=== PATIENT | female | born 1990 | race Caucasian/White ===

== ENCOUNTER → 2017-09-01 | Outpatient (CLI) | payer BC ==
[2017-09-01 15:45] LABS: Total Protein 4.4 g/dL (6.3-8.2)
[2017-09-01 18:48] LABS: Protein, Total 4.5 g/dL (6.2-8.2)
[2017-09-01 18:56] LABS: Vitamin D 25 Hydroxy 15.9 ng/mL (30.0-100.0)
[2017-09-01 19:16] LABS: Parathyroid Hormone Intact 77.3 pg/mL (14.0-72.0)
== END | disposition home or self-care (01) ==
LOC: LABWHC1 14:30
PROVIDERS: ATTEND Family Medicine
DX: E83.51 Hypocalcemia (principal)
CPT/HCPCS: 36415; 82306; 82330; 83970; 84155; 84165

== ENCOUNTER → 2017-09-30 | Outpatient (CLI) | payer BC ==
--- NOTE | 2017-09-30 17:37 | US ---
EXAMINATION TYPE: US thyroid st tissue head/neck DATE OF EXAM: 09/30/2017 COMPARISON: NONE CLINICAL HISTORY: E21.3 Hyperparathyroidism,. not on meds GLAND SIZE: Right Lobe: 3.8 x 1.0 x 1.6 cm Overall Parenchyma: homogenous Left Lobe: 4.2 x 1.3 x 1.2 cm Overall Parenchyma: homogeneous Isthmus Thickness: 0.3 cm NODULES RIGHT: # of nodules measured on right: 0 LEFT: # of nodules measured on left: 0 ISTHMUS: # of nodules measured in the isthmus: 0 Bilateral neck scanned, no evidence of lymphadenopathy. No parathyroid tissue seen IMPRESSION: Thyroid gland appears normal. No evidence of a parathyroid mass.
== END | disposition home or self-care (01) ==
LOC: RADUSWWP 16:22
PROVIDERS: ATTEND Internal Medicine Endocrinology, Diabetes & Metabolism
DX: E21.3 Hyperparathyroidism, unspecified (principal)
CPT/HCPCS: 76536

== ENCOUNTER 2017-10-26 10:04 | Emergency (ER) | payer SELFPAY ==
[2017-10-26 12:40] LABS: Appearance,Urine Clear (Clear); Bilirubin,Urine Negative (Negative); Blood,Urine Small (Negative); Color,Urine Colorless; Glucose,Urine (UA) Negative (Negative); Ketones,Urine Negative (Negative); Leukocyte Esterase,Urine Negative (Negative); Nitrite,Urine Negative (Negative); PH, Urine 5.5 (5.0-8.0); Protein,Urine Negative (Negative); Specific Gravity,Urine 1.003 (1.001-1.035); Squamous Epithelial Cell,Urine <1 /hpf (0-4); Urobilinogen,Urine <2.0 mg/dL (<2.0); WBC,Urine <1 /hpf (0-5)
--- NOTE | 2017-10-26 12:48 | ED ---
Female Urogenital HPI - General Chief complaint: Vaginal Bleeding Stated complaint: Bleeding/cramping/ Time Seen by Provider: 10/26/17 10:54 Source: patient, RN notes reviewed, old records reviewed Mode of arrival: ambulatory Limitations: no limitations - History of Present Illness Initial comments: 19-year-old female currently early stage of presents emergency with vaginal bleeding. Patient reports since vaginal bleeding yesterday and today. She states that her last menstrual period was on October 02. Patient states that this is her third . She denies any fever or chills. She reports she does have some minor pain towards the right side. She complains of cramping. Patient states that she's had no fevers or chills or any other symptoms. Patient has a history of lymphedema.Patient denies any recent fever, chills, shortness of breath, chest pain, back pain, abdominal pain, nausea vomiting, numbness or tingling, dysuria or hematuria, constipation or diarrhea, headaches or visual changes, or any other current symptoms Last Menstrual Period: 10/02/17 - Related Data Home Medications Medication Instructions Recorded Confirmed Ergocalciferol (Vitamin D2) 50,000 unit PO TH 10/26/17 10/26/17 [Vitamin D2] Previous Rx's Medication Instructions Recorded Ojo-Jtru-Wfyln Acid 1 cap PO DAILY #20 cap 10/26/17 [-U Capsule (formulary)] Allergies Allergy/AdvReac Type Severity Reaction Status Date / Time No Known Allergies Allergy Verified 10/26/17 13:08 Review of Systems ROS Statement: Those systems with pertinent positive or pertinent negative responses have been documented in the HPI. ROS Other: All systems not noted in ROS Statement are negative. Past Medical History Past Medical History: No Reported History Additional Past Medical History / Comment(s): lymphedema History of Any Multi-Drug Resistant Organisms: None Reported Past Surgical History: No Surgical Hx Reported, Section Past Psychological History: No Psychological Hx Reported Smoking Status: Current every day smoker Past Alcohol Use History: None Reported, Rare Past Drug Use History: None Reported General Exam - General Exam Comments Initial Comments: 27-year-old female. Alert and oriented. No significant distress. Limitations: no limitations General appearance: alert, in no apparent distress Head exam: Present: atraumatic, normocephalic, normal inspection Eye exam: Present: normal appearance, PERRL, EOMI. Absent: scleral icterus, conjunctival injection, periorbital swelling ENT exam: Present: normal exam, mucous membranes moist Neck exam: Present: normal inspection. Absent: tenderness, meningismus, lymphadenopathy Respiratory exam: Present: normal lung sounds bilaterally. Absent: respiratory distress, wheezes, rales, rhonchi, stridor Cardiovascular Exam: Present: regular rate, normal rhythm, normal heart sounds. Absent: systolic murmur, diastolic murmur, rubs, gallop, clicks GI/Abdominal exam: Present: soft, normal bowel sounds. Absent: distended, tenderness, guarding, rebound, rigid External exam: Present: normal external exam. Absent: erythema, swelling Speculum exam: Present: vaginal bleeding. Absent: normal speculum exam, vaginal discharge By manual exam: Present: normal by manual exam. Absent: cervical motion tenderness, adnexal tenderness, adnexal mass Extremities exam: Present: normal inspection, full ROM, normal capillary refill. Absent: tenderness, pedal edema, joint swelling, calf tenderness Back exam: Present: normal inspection, full ROM Neurological exam: Present: alert, oriented X3, CN II-XII intact Psychiatric exam: Present: normal affect, normal mood Skin exam: Present: warm, dry, intact, normal color. Absent: rash Course Vital Signs 10/26/17 10/26/17 10/26/17 10:23 13:30 14:31 Temperature 99.0 F 98.4 F Pulse Rate 109 H 77 87 Respiratory 18 18 15 Rate Blood Pressure 117/63 129/56 113/60 O2 Sat by Pulse 99 99 98 Oximetry 10/26/17 15:00 Temperature 98.4 F Pulse Rate 87 Respiratory 15 Rate Blood Pressure 113/60 O2 Sat by Pulse 98 Oximetry - Reevaluation(s) Reevaluation #1: 10/26/17 14:[address] Carrizales recommends repeat hCG in 2 days and follow-up with her in the office on Tuesday. Patient is informed of this plan and agrees to treatment. Medical Decision Making - Medical Decision Making 27-year-old female presents emergency department today with chief complaint of vaginal bleeding. She is a female. Urine hCG is positive. Serum hCG is 2023. Patient has Rh+ blood type. Ultrasound does show a 4.47 m area cyst. Could possibly be an ectopic or missed or an early too early to identify any intrauterine area. She does have some bleeding on vaginal exam. No significant abdominal tenderness. No cervical motion tenderness. At this time I discussed the case with Dr. Carrizales. She recommends the we'll repeat the hCG in 2 days and have her follow-up on Tuesday afternoon with her in the office. Patient understood history plan will comply. Return parameters were discussed. - Lab Data Result diagrams: 10/26/17 12:34 10/26/17 12:34 Lab Results 10/26/17 10/26/17 10/26/17 Range/Units 12:25 12:25 12:33 WBC (3.8-10.6) k/uL RBC (3.80-5.40) m/uL Hgb (11.4-16.0) gm/dL Hct (34.0-46.0) % MCV (80.0-100.0) fL MCH (25.0-35.0) pg MCHC (31.0-37.0) g/dL RDW (11.5-15.5) % Plt Count (150-450) k/uL Neutrophils % % Lymphocytes % % Monocytes % % Eosinophils % % Basophils % % Neutrophils # (1.3-7.7) k/uL Lymphocytes # (1.0-4.8) k/uL Monocytes # (0-1.0) k/uL Eosinophils # (0-0.7) k/uL Basophils # (0-0.2) k/uL PT (9.0-12.0) sec INR (<1.2) APTT (22.0-30.0) sec Sodium (137-145) mmol/L Potassium (3.5-5.1) mmol/L Chloride (98-107) mmol/L Carbon Dioxide (22-30) mmol/L Anion Gap mmol/L BUN (7-17) mg/dL Creatinine (0.52-1.04) mg/dL Est GFR (CKD-EPI)AfAm (>60 ml/min/1.73 sqM) Est GFR (CKD-EPI)NonAf (>60 ml/min/1.73 sqM) Glucose (74-99) mg/dL Calcium (8.4-10.2) mg/dL Total Bilirubin (0.2-1.3) mg/dL AST (14-36) U/L ALT (9-52) U/L Alkaline Phosphatase (38-126) U/L Total Protein (6.3-8.2) g/dL Albumin (3.5-5.0) g/dL HCG, Quant mIU/mL Urine Color Colorless Urine Appearance Clear (Clear) Urine pH 5.5 (5.0-8.0) Ur Specific [place] 1.003 (1.001-1.035) Urine Protein Negative (Negative) Urine Glucose (UA) Negative (Negative) Urine Ketones Negative (Negative) Urine Blood Small H (Negative) Urine Nitrite Negative (Negative) Urine Bilirubin Negative (Negative) Urine Urobilinogen <2.0 (<2.0) mg/dL Ur Leukocyte Esterase Negative (Negative) Urine WBC <1 (0-5) /hpf Ur Squamous Epith Cells <1 (0-4) /hpf Urine HCG, Qual Detected (Not Detectd) Blood Type A Positive Blood Type Recheck [facility] 10/26/17 10/26/17 10/26/17 Range/Units 12:34 12:34 12:34 WBC 7.3 (3.8-10.6) k/uL RBC 4.71 (3.80-5.40) m/uL Hgb 14.1 (11.4-16.0) gm/dL Hct 40.9 (34.0-46.0) % MCV 86.9 (80.0-100.0) fL MCH 30.0 (25.0-35.0) pg MCHC 34.5 (31.0-37.0) g/dL RDW 14.3 (11.5-15.5) % Plt Count 256 (150-450) k/uL Neutrophils % 82 % Lymphocytes % 11 % Monocytes % 2 % Eosinophils % 4 % Basophils % 0 % Neutrophils # 6.0 (1.3-7.7) k/uL Lymphocytes # 0.8 L (1.0-4.8) k/uL Monocytes # 0.1 (0-1.0) k/uL Eosinophils # 0.3 (0-0.7) k/uL Basophils # 0.0 (0-0.2) k/uL PT 10.3 (9.0-12.0) sec INR 1.0 (<1.2) APTT 21.6 L (22.0-30.0) sec Sodium (137-145) mmol/L Potassium (3.5-5.1) mmol/L Chloride (98-107) mmol/L Carbon Dioxide (22-30) mmol/L Anion Gap mmol/L BUN (7-17) mg/dL Creatinine (0.52-1.04) mg/dL Est GFR (CKD-EPI)AfAm (>60 ml/min/1.73 sqM) Est GFR (CKD-EPI)NonAf (>60 ml/min/1.73 sqM) Glucose (74-99) mg/dL Calcium (8.4-10.2) mg/dL Total Bilirubin (0.2-1.3) mg/dL AST (14-36) U/L ALT (9-52) U/L Alkaline Phosphatase (38-126) U/L Total Protein (6.3-8.2) g/dL Albumin (3.5-5.0) g/dL HCG, Quant 2024.0 mIU/mL Urine Color Urine Appearance (Clear) Urine pH (5.0-8.0) Ur Specific [place] (1.001-1.035) Urine Protein (Negative) Urine Glucose (UA) (Negative) Urine Ketones (Negative) Urine Blood (Negative) Urine Nitrite (Negative) Urine Bilirubin (Negative) Urine Urobilinogen (<2.0) mg/dL Ur Leukocyte Esterase (Negative) Urine WBC (0-5) /hpf Ur Squamous Epith Cells (0-4) /hpf Urine HCG, Qual (Not Detectd) Blood Type Blood Type Recheck 10/26/17 Range/Units 12:34 WBC (3.8-10.6) k/uL RBC (3.80-5.40) m/uL Hgb (11.4-16.0) gm/dL Hct (34.0-46.0) % MCV (80.0-100.0) fL MCH (25.0-35.0) pg MCHC (31.0-37.0) g/dL RDW (11.5-15.5) % Plt Count (150-450) k/uL Neutrophils % % Lymphocytes % % Monocytes % % Eosinophils % % Basophils % % Neutrophils # (1.3-7.7) k/uL Lymphocytes # (1.0-4.8) k/uL Monocytes # (0-1.0) k/uL Eosinophils # (0-0.7) k/uL Basophils # (0-0.2) k/uL PT (9.0-12.0) sec INR (<1.2) APTT (22.0-30.0) sec Sodium 138 (137-145) mmol/L Potassium 4.7 (3.5-5.1) mmol/L Chloride 112 H (98-107) mmol/L Carbon Dioxide 24 (22-30) mmol/L Anion Gap 2 mmol/L BUN 10 (7-17) mg/dL Creatinine 0.60 (0.52-1.04) mg/dL Est GFR (CKD-EPI)AfAm >90 (>60 ml/min/1.73 sqM) Est GFR (CKD-EPI)NonAf >90 (>60 ml/min/1.73 sqM) Glucose 90 (74-99) mg/dL Calcium 8.3 L (8.4-10.2) mg/dL Total Bilirubin 0.2 (0.2-1.3) mg/dL AST 23 (14-36) U/L ALT 46 (9-52) U/L Alkaline Phosphatase 49 (38-126) U/L Total Protein 4.7 L (6.3-8.2) g/dL Albumin 2.6 L (3.5-5.0) g/dL HCG, Quant mIU/mL Urine Color Urine Appearance (Clear) Urine pH (5.0-8.0) Ur Specific [place] (1.001-1.035) Urine Protein (Negative) Urine Glucose (UA) (Negative) Urine Ketones (Negative) Urine Blood (Negative) Urine Nitrite (Negative) Urine Bilirubin (Negative) Urine Urobilinogen (<2.0) mg/dL Ur Leukocyte Esterase (Negative) Urine WBC (0-5) /hpf Ur Squamous Epith Cells (0-4) /hpf Urine HCG, Qual (Not Detectd) Blood Type Blood Type Recheck - Radiology Data Radiology results: report reviewed 4.4 cm right ovarian cyst with small amount of free fluid within the pelvis. No Osorio and out of it. Differential diagnosis would been too early to detect, missed or ectopic . Correlate with serial HEG pelvic ultrasound. Disposition Clinical Impression: Threatened miscarriage, Right ovarian cyst Disposition: HOME SELF-CARE Condition: Good Instructions: Menstruation (ED) Additional Instructions: Patient has follow-up with primary care physician and [facility] on Tuesday. Repeat hCG level Tuesday morning and follow-up with Dr. Carrizales in the office on Tuesday afternoon. Return to emergency department if any alarming symptoms occur. Prescriptions: Awf-Aaym-Vhyiy Acid [-U Capsule (formulary)] 1 cap PO DAILY # 20 cap Is patient prescribed a controlled substance at d/c from ED?: No Referrals: Stefan Sesay DO [Primary Care Provider] - 1-2 days Kellen Carrizales DO [Doctor of Osteopathic Medicine] - 1-2 days Time of Disposition: 14:22
[2017-10-26 12:54] LABS: Basophils % (A) 0 %; Eosinophils # (A) 0.3 k/uL (0-0.7); Eosinophils % (A) 4 %; HCT 40.9 % (34.0-46.0); HGB 14.1 gm/dL (11.4-16.0); Lymphocytes # (A) 0.8 k/uL (1.0-4.8); Lymphocytes % (A) 11 %; MCHC 34.5 g/dL (31.0-37.0); MCV 86.9 fL (80.0-100.0); Mean Platelet Volume 6.8; Monocytes # (A) 0.1 k/uL (0-1.0); Monocytes % (A) 2 %; Neutrophils % (A) 82 %; Platelet Count 256 k/uL (150-450); RBC 4.71 m/uL (3.80-5.40); RDW 14.3 % (11.5-15.5); WBC 7.3 k/uL (3.8-10.6)
[2017-10-26 13:09] LABS: Prothrombin Time 10.3 sec (9.0-12.0)
[2017-10-26 13:12] LABS: ALT 46 U/L (9-52); AST 23 U/L (14-36); Albumin 2.6 g/dL (3.5-5.0); Alkaline Phosphatase 49 U/L (38-126); Anion Gap 2 mmol/L; Blood Urea Nitrogen 10 mg/dL (7-17); Calcium 8.3 mg/dL (8.4-10.2); Carbon Dioxide 24 mmol/L (22-30); Chloride 112 mmol/L (98-107); Glucose 90 mg/dL (74-99); Potassium 4.7 mmol/L (3.5-5.1); Sodium 138 mmol/L (137-145); Total Bilirubin 0.2 mg/dL (0.2-1.3); Total Protein 4.7 g/dL (6.3-8.2)
[2017-10-26 13:15] LABS: Partial Thromboplastin Time 21.6 sec (22.0-30.0)
--- NOTE | 2017-10-26 13:19 | US ---
EXAMINATION TYPE: Transabdominal DATE OF EXAM: 06/14/17 COMPARISON: NONE CLINICAL HISTORY: Patient is has cramps and is bleeding. She had positive home test. EXAM PERFORMED: Transabdominal (TA) EXAM MEASUREMENTS: GESTATIONAL AGE / DATING Physician Established: Not yet established Dates by LMP: (3 weeks/5 days) EDC: 07/07/17 Dates by First Scan: No previous this is first scan Dates by Current Scan for: Unable to date by jovanna kern's study MATERNAL ANATOMY Uterus: 10.5 x 4.8 x 6.6cm Right Ovary: 4.3 x 3.3 x 3.4cm Left Ovary: 3.2 x 2.1 x 1.9cm Post CDS / Adnexa: wnl Presence of free fluid: small amount of ff adjacent to left ovary and anterior to uterus Presence of corpus luteal cyst: no Presence of subchorionic bleed: no GESTATION / SURVEY IUP: No IUP seen at this time Date of LMP: 09/30/17 Beta HcG (if available): Not available at this time No IUP seen at this time. Right ovarian cyst measuring 4.4 x 3.0 x 3.0cm IMPRESSION: 1. 4.4 cm right ovarian cyst with a small amount of free fluid in the pelvis. No intrauterine pregnan cy identified. Differential diagnosis would include a normal too early to detect, missed ab ortion, or ectopic . Correlate with serial beta hCG and pelvic ultrasound.
[2017-10-26 14:32] VITALS: BP 113/60; PULSE 87; RESP 15; TEMP 98.4
== END 2017-10-26 15:00 | disposition home or self-care (01) ==
LOC: EC 10:04
DX: O20.0 Threatened abortion (principal); O34.80 Maternal care for other abnormalities of pelvic organs, unspecified trimester; N83.201 Unspecified ovarian cyst, right side; O99.330 Smoking (tobacco) complicating pregnancy, unspecified trimester; F17.200 Nicotine dependence, unspecified, uncomplicated; Z79.899 Other long term (current) drug therapy; Z98.890 Other specified postprocedural states; Z3A.00 Weeks of gestation of pregnancy not specified
CPT/HCPCS: 36415; 76801; 80053; 81001; 81025; 84702; 85025; 85610; 85730; 86900; 86901; 99284

== ENCOUNTER → 2017-10-28 | Outpatient (CLI) | payer SELFPAY | END | disposition home or self-care (01) | LOC: LABWHC1 09:54 | PROVIDERS: ATTEND Physician Assistant Medical | DX: O20.0 Threatened abortion (principal) | CPT/HCPCS: 36415; 84702 ==

== ENCOUNTER → 2017-11-02 | Outpatient (CLI) | payer OTHER ==
--- NOTE | 2017-11-02 14:24 | US ---
EXAMINATION TYPE: Transabdominal DATE OF EXAM: 06/14/17 COMPARISON: US CLINICAL HISTORY: Z36 PREV ABN ULTRASOUND. EXAM PERFORMED: Transvaginal (TV) and Transabdominal (TA), endovaginal scanning performed for better evaluation of the uterus EXAM MEASUREMENTS: GESTATIONAL AGE / DATING Physician Established: Not yet established Dates by LMP: (4 weeks/5 days) EDC: 07/07/18 Dates by First Scan: unable to date by 1st scan EDC: Dates by Current Scan for: Unable to date by today's study MATERNAL ANATOMY Uterus: 10.9 x 5.7 x 6.9cm Endometrium: 1.7cm, small amount of fluid in endocervical canal Right Ovary: 4.3 x 3.8 x 3.4cm Left Ovary: not visualized due to overlying bowel Post CDS / Adnexa: wnl Presence of free fluid: very small amount in cul de sac Presence of corpus luteal cyst: Cyst noted right ovary measuring 3.7 x 2.9 x 3.4 cm Presence of subchorionic bleed: no GESTATION / SURVEY IUP: No IUP seen at this time Date of LMP: 09/30/17 Beta HcG (if available): 10/26/17, 2,024 10/28/17, 4,142 Empty uterus with Beta HCG that should be at least showing a gestational sac. Patient bladder not full enough for abdominal, patient unable to well empty for vaginal. Patient of l arge body habitus. Technically difficult. IMPRESSION: Somewhat limited exam. An intrauterine is not identified, endometrium is thickened, follow- up suggested. Small amount of free fluid present. Right ovarian cyst.
== END | disposition home or self-care (01) ==
LOC: RADUSWWP 12:48
PROVIDERS: ATTEND Obstetrics & Gynecology
DX: Z53.9 Procedure and treatment not carried out, unspecified reason (principal)
CPT/HCPCS: 36415; 76801; 76817; 84702

== ENCOUNTER → 2017-11-03 | Outpatient (CLI) | payer OTHER ==
[~2017-11-03] MED LIST: METHOTREXATE SODIUM (PF) 25 MG/ML 2 ML VIAL IM NR
[2017-11-03 13:09] VITALS: BP 128/61; PULSE 87; RESP 16; TEMP 98.2
== END | disposition home or self-care (01) ==
LOC: PROCWHC3 12:20
PROVIDERS: ATTEND Obstetrics & Gynecology
DX: O00.90 Unspecified ectopic pregnancy without intrauterine pregnancy (principal)
CPT/HCPCS: 96402; J9260

== ENCOUNTER → 2017-11-07 | Outpatient (CLI) | payer OTHER | END | disposition home or self-care (01) | LOC: LABWHC1 10:39 | PROVIDERS: ATTEND Obstetrics & Gynecology | DX: O00.90 Unspecified ectopic pregnancy without intrauterine pregnancy (principal); Z3A.00 Weeks of gestation of pregnancy not specified | CPT/HCPCS: 36415; 84702 ==

== ENCOUNTER → 2017-11-10 | Outpatient (CLI) | payer OTHER | END | disposition home or self-care (01) | LOC: LABWHC1 11:37 | PROVIDERS: ATTEND Obstetrics & Gynecology | DX: O00.90 Unspecified ectopic pregnancy without intrauterine pregnancy (principal) | CPT/HCPCS: 36415; 84702 ==

== ENCOUNTER → 2018-02-20 | Outpatient (CLI) | payer OTHER | END | disposition home or self-care (01) | LOC: LABWHC1 13:56 | PROVIDERS: ATTEND Obstetrics & Gynecology | DX: N93.8 Other specified abnormal uterine and vaginal bleeding (principal) | CPT/HCPCS: 36415; 84702 ==

== ENCOUNTER 2018-09-25 18:27 | Observation (INO) | payer OTHER ==
[2018-09-25] MEDS ORDERED: SODIUM CHLORIDE 0.9% 1,000 ML IV STA (19:00)
[2018-09-25] MEDS ORDERED: ONDANSETRON 4 MG/2 ML VIAL IVP STA (19:00)
[2018-09-25] MEDS ORDERED: MORPHINE SULFATE 4 MG/ML SYRINGE IV STA ×2 (19:46→21:36)
[2018-09-25 19:49] LABS: ALT 28 U/L (9-52); AST 27 U/L (14-36); African American GFR (CKD) >90 (>60 ml/min/1.73 sqM); Albumin 2.8 g/dL (3.5-5.0); Alkaline Phosphatase 67 U/L (38-126); Anion Gap 5 mmol/L; Blood Urea Nitrogen 10 mg/dL (7-17); Calcium 8.4 mg/dL (8.4-10.2); Carbon Dioxide 25 mmol/L (22-30); Chloride 108 mmol/L (98-107); Glucose 100 mg/dL (74-99); Sodium 138 mmol/L (137-145); Total Bilirubin 0.3 mg/dL (0.2-1.3)
[2018-09-25 19:50] LABS: Anisocytosis Slight; Basophils # (A) 0.1 k/uL (0-0.2); Basophils % (A) 1 %; Eosinophils # (A) 0.3 k/uL (0-0.7); Eosinophils % (A) 4 %; HCT 39.3 % (34.0-46.0); HGB 12.9 gm/dL (11.4-16.0); Hypochromasia Slight; Lymphocytes # (A) 1.5 k/uL (1.0-4.8); Lymphocytes % (A) 20 %; MCH 24.1 pg (25.0-35.0); MCHC 32.7 g/dL (31.0-37.0); MCV 73.6 fL (80.0-100.0); Microcytosis Slight; Monocytes # (A) 0.2 k/uL (0-1.0); Monocytes % (A) 3 %; Neutrophils # (A) 5.2 k/uL (1.3-7.7); Neutrophils % (A) 71 %; Platelet Count 272 k/uL (150-450); Poikilocytosis Slight; RBC 5.33 m/uL (3.80-5.40); WBC 7.4 k/uL (3.8-10.6)
--- NOTE | 2018-09-25 20:00 | ED ---
General Adult HPI - General Chief complaint: Headache Stated complaint: Confusion Time Seen by Provider: 09/25/18 18:53 Source: patient, RN notes reviewed, old records reviewed Mode of arrival: ambulatory Limitations: no limitations - History of Present Illness Initial comments: 28-year-old female patient with no pertinent past medical history presents to ED for headache and. Confusion. Patient port site approximately 1.5 hours prior to presentation to ED she had a mild headache and then had a approximate 5 minute period of confusion where she also experienced some expressive aphasia. Patient denies experiencing any focal deficit, facial droop, upper or lower extremity paresthesias, or lower extremity weakness. Her history. Patient did then develop a headache in her left posterior lobe, behind her left eye. Patient does report that this feels similar to migraines she has had in the past, however is more severe. Patient states that this headache did have a relatively fast onset, denies thunderclap onset. Patient has a secondary complaint of a cough which she has been experiencing for approximately 2 weeks. Patient states that she cannot be . Denies any other complaints at this time. Systemic: Pt denies fatigue, fever/chills, rash. Pt denies weakness, night sweats, weight loss. Neuro: Pt denies visual disturbances, syncope or pre-syncope. HEENT: Pt denies ocular discharge or irritation, otalgia, rhinorrhea, pharyngit is or notable lymphadenopathy. Cardiopulmonary: Pt denies chest pain, SOB, heart palpitations, dyspnea on exertion. Abdominal/GI: Pt denies abdominal pain, n/v/d. : Pt denies dysuria, burning w/ urination, frequency/urgency. Denies new onset urinary or bowel incontinence. MSK: Pt denies myalgia, loss of strength or function in extremities. Neuro: Pt denies new onset weakness, paresthesias. - Related Data Allergies Allergy/AdvReac Type Severity Reaction Status Date / Time No Known Allergies Allergy Verified 09/25/18 18:38 Review of Systems ROS Statement: Those systems with pertinent positive or pertinent negative responses have been documented in the HPI. ROS Other: All systems not noted in ROS Statement are negative. Past Medical History Past Medical History: No Reported History Additional Past Medical History / Comment(s): lymphedema History of Any Multi-Drug Resistant Organisms: None Reported Past Surgical History: Section Past Psychological History: Depression Smoking Status: Current every day smoker Past Alcohol Use History: None Reported Past Drug Use History: None Reported General Exam - General Exam Comments Initial Comments: Constitutional: NAD, AOX3, Pt has pleasant affect. HEENT: NC/AT, trachea midline, neck supple, no lymphadenopathy. Posterior pharynx non erythematous, without exudates. External ears appear normal, without discharge. Mucous membranes moist. Eyes PERRLA, EOM intact. There is no scleral icterus. No pallor noted. Cardiopulmonary: RRR, no murmurs, rubs or gallops, no JVD noted. Lungs CTAB in anterior and posterior sun. No peripheral edema. Abdominal exam: Abdomen soft and non-distended. Abdomen non-tender to palpation in all 4 quadrants. Bowel sounds active in LLQ. No hepatosplenomegaly. No ecchymosis Neuro: CN II-XII intact. No nuchal rigidity. No raccon eyes, no petersen sign, no hemotympanum. No cervical spinal tenderness. NIH 0. MSK: No posterior calf tenderness bilaterally, homans sign negative bilaterally. Posterior tibialis and radial pulse +2 bilaterally. Sensation intact in upper and lower extremities. Full active ROM in upper and lower extremities, 5/5 stregnth. Limitations: no limitations Course Vital Signs 09/25/18 09/25/18 18:33 19:43 Temperature 98 F 97.9 F Pulse Rate 90 78 Respiratory 18 18 Rate Blood Pressure 115/76 102/70 O2 Sat by Pulse 98 99 Oximetry Medical Decision Making - Medical Decision Making 28-year-old female patient with no pertinent past medical history presents to ED for headache and. Confusion. Patient port site approximately 1.5 hours prior to presentation to ED she had a mild headache and then had a approximate 5 minute period of confusion where she also experienced some expressive aphasia. Patient denies experiencing any focal deficit, facial droop, upper or lower extremity paresthesias, or lower extremity weakness. Her history. Patient did then develop a headache in her left posterior lobe, behind her left eye. Patient does report that this feels similar to migraines she has had in the past, however is more severe. Patient states that this headache did have a relatively fast onset, denies thunderclap onset. Patient has a secondary complaint of a cough which she has been experiencing for approximately 2 weeks. Patient states that she cannot be . Denies any other complaints at this time. Patient bowel signs stable, afebrile. Physical exam did not display a cute pathology, normal neurologic exam. Laboratory investigations were not impressive. CT brain without contrast as well as CTA head and neck did not display acute intracranial pathology. Chest x-ray did not acute process. Patient be admitted to Dr. Dinh with neurology consult. Case discussed with Dr. Boone. - Lab Data Result diagrams: 09/25/18 19:30 09/25/18 19:30 Lab Results 09/25/18 09/25/18 09/25/18 Range/Units 19:30 19:30 19:53 WBC 7.4 (3.8-10.6) k/uL RBC 5.33 (3.80-5.40) m/uL Hgb 12.9 (11.4-16.0) gm/dL Hct 39.3 (34.0-46.0) % MCV 73.6 L (80.0-100.0) fL MCH 24.1 L (25.0-35.0) pg MCHC 32.7 (31.0-37.0) g/dL RDW 17.0 H (11.5-15.5) % Plt Count 272 (150-450) k/uL Neutrophils % 71 % Lymphocytes % 20 % Monocytes % 3 % Eosinophils % 4 % Basophils % 1 % Neutrophils # 5.2 (1.3-7.7) k/uL Lymphocytes # 1.5 (1.0-4.8) k/uL Monocytes # 0.2 (0-1.0) k/uL Eosinophils # 0.3 (0-0.7) k/uL Basophils # 0.1 (0-0.2) k/uL Hypochromasia Slight Poikilocytosis Slight Anisocytosis Slight Microcytosis Slight Sodium 138 (137-145) mmol/L Potassium 5.0 (3.5-5.1) mmol/L Chloride 108 H (98-107) mmol/L Carbon Dioxide 25 (22-30) mmol/L Anion Gap 5 mmol/L BUN 10 (7-17) mg/dL Creatinine 0.63 (0.52-1.04) mg/dL Est GFR (CKD-EPI)AfAm >90 (>60 ml/min/1.73 sqM) Est GFR (CKD-EPI)NonAf >90 (>60 ml/min/1.73 sqM) Glucose 100 H (74-99) mg/dL Calcium 8.4 (8.4-10.2) mg/dL Total Bilirubin 0.3 (0.2-1.3) mg/dL AST 27 (14-36) U/L ALT 28 (9-52) U/L Alkaline Phosphatase 67 (38-126) U/L Total Protein 5.0 L (6.3-8.2) g/dL Albumin 2.8 L (3.5-5.0) g/dL Urine Color Urine Appearance (Clear) Urine pH (5.0-8.0) Ur Specific [place] (1.001-1.035) Urine Protein (Negative) Urine Glucose (UA) (Negative) Urine Ketones (Negative) Urine Blood (Negative) Urine Nitrite (Negative) Urine Bilirubin (Negative) Urine Urobilinogen (<2.0) mg/dL Ur Leukocyte Esterase (Negative) Urine HCG, Qual Not Detected (Not Detectd) 09/25/18 Range/Units 19:53 WBC (3.8-10.6) k/uL RBC (3.80-5.40) m/uL Hgb (11.4-16.0) gm/dL Hct (34.0-46.0) % MCV (80.0-100.0) fL MCH (25.0-35.0) pg MCHC (31.0-37.0) g/dL RDW (11.5-15.5) % Plt Count (150-450) k/uL Neutrophils % % Lymphocytes % % Monocytes % % Eosinophils % % Basophils % % Neutrophils # (1.3-7.7) k/uL Lymphocytes # (1.0-4.8) k/uL Monocytes # (0-1.0) k/uL Eosinophils # (0-0.7) k/uL Basophils # (0-0.2) k/uL Hypochromasia Poikilocytosis Anisocytosis Microcytosis Sodium (137-145) mmol/L Potassium (3.5-5.1) mmol/L Chloride (98-107) mmol/L Carbon Dioxide (22-30) mmol/L Anion Gap mmol/L BUN (7-17) mg/dL Creatinine (0.52-1.04) mg/dL Est GFR (CKD-EPI)AfAm (>60 ml/min/1.73 sqM) Est GFR (CKD-EPI)NonAf (>60 ml/min/1.73 sqM) Glucose (74-99) mg/dL Calcium (8.4-10.2) mg/dL Total Bilirubin (0.2-1.3) mg/dL AST (14-36) U/L ALT (9-52) U/L Alkaline Phosphatase (38-126) U/L Total Protein (6.3-8.2) g/dL Albumin (3.5-5.0) g/dL Urine Color Yellow Urine Appearance Clear (Clear) Urine pH 6.5 (5.0-8.0) Ur Specific [place] 1.012 (1.001-1.035) Urine Protein Negative (Negative) Urine Glucose (UA) Negative (Negative) Urine Ketones Negative (Negative) Urine Blood Negative (Negative) Urine Nitrite Negative (Negative) Urine Bilirubin Negative (Negative) Urine Urobilinogen <2.0 (<2.0) mg/dL Ur Leukocyte Esterase Negative (Negative) Urine HCG, Qual (Not Detectd) Disposition Clinical Impression: Migraine, Headache Disposition: ADMITTED IP TO THIS [facility] Condition: Fair Is patient prescribed a controlled substance at d/c from ED?: No Referrals: None,Stated [Primary Care Provider] - 1-2 days
[2018-09-25 20:02] LABS: Appearance,Urine Clear (Clear); Bilirubin,Urine Negative (Negative); Blood,Urine Negative (Negative); Color,Urine Yellow; Glucose,Urine (UA) Negative (Negative); Ketones,Urine Negative (Negative); Leukocyte Esterase,Urine Negative (Negative); Nitrite,Urine Negative (Negative); PH, Urine 6.5 (5.0-8.0); Protein,Urine Negative (Negative); Specific Gravity,Urine 1.012 (1.001-1.035); Urobilinogen,Urine <2.0 mg/dL (<2.0)
--- NOTE | 2018-09-25 20:59 | CT ---
EXAMINATION TYPE: CT brain wo con DATE OF EXAM: 09/25/2018 COMPARISON: None HISTORY: headache CT DLP: 1045 mGycm. Automated Exposure Control for Dose Reduction was Utilized. TECHNIQUE: CT scan of the head is performed without contrast. FINDINGS: Ventricles and sulci appear normal. There is no mass effect nor midline shift. There is no sign of intracranial hemorrhage. Calvarium is intact. There is left-sided mucosal thickening in the s phenoid sinus. IMPRESSION: Left-sided sphenoid sinusitis. No acute intracranial abnormality.
--- NOTE | 2018-09-25 21:02 | CT ---
EXAMINATION TYPE: CT angio head neck DATE OF EXAM: 09/25/2018 HISTORY: headache COMPARISON: None CT DLP: 439.8 mGycm. Automated Exposure Control for Dose Reduction was Utilized. TECHNIQUE: CTA scan of the neck is performed with IV Contrast, patient injected with 50 mL of Isovue 370, axial images are obtained, coronal and sagittal reformatted images are reviewed. Three-D recons tructed images are created on an independent workstation and reviewed. FINDINGS: There is normal branching pattern of the great vessels on the aortic arch. There is bilateral arteria l flow in the subclavian arteries. There is arterial flow in the common internal and external carotid arteries bilaterally. There is arterial flow in both vertebral arteries. There is arterial flow in t he vertebrobasilar artery system. There is arterial flow in the anterior middle and posterior cerebra l arteries. There is normal contrast opacification of the venous sinuses. There is wide patency of th e carotid artery bifurcations. There is no evidence of carotid or vertebral artery aneurysm or dissection. There is no evidence of h emodynamic arterial stenosis. There is no mass effect. IMPRESSION: Normal CT angiogram of the neck. Normal CT angiogram of the brain.
--- NOTE | 2018-09-25 21:19 | XR ---
EXAMINATION TYPE: XR chest 2V DATE OF EXAM: 09/25/2018 COMPARISON: NONE HISTORY: Altered mental status TECHNIQUE: Frontal and lateral views of the chest are obtained. FINDINGS: Heart and mediastinum are normal. Lungs are clear. Diaphragm is normal. Bony thorax appear s normal. IMPRESSION: Normal chest
[2018-09-25] MEDS ORDERED: METOCLOPRAMIDE 5 MG/ML 2 ML VIAL IVP STA (21:36)
[2018-09-25] MEDS ORDERED: diphenhydrAMINE 50 MG/ML 1 ML VIAL IVP STA (21:36)
--- NOTE | 2018-09-25 21:47 | ED ---
Medical Decision Making - Medical Decision Making [facility] 0 x2. - Lab Data Result diagrams: 09/25/18 19:30 09/25/18 19:30 Lab Results 09/25/18 09/25/18 09/25/18 Range/Units 19:30 19:30 19:53 WBC 7.4 (3.8-10.6) k/uL RBC 5.33 (3.80-5.40) m/uL Hgb 12.9 (11.4-16.0) gm/dL Hct 39.3 (34.0-46.0) % MCV 73.6 L (80.0-100.0) fL MCH 24.1 L (25.0-35.0) pg MCHC 32.7 (31.0-37.0) g/dL RDW 17.0 H (11.5-15.5) % Plt Count 272 (150-450) k/uL Neutrophils % 71 % Lymphocytes % 20 % Monocytes % 3 % Eosinophils % 4 % Basophils % 1 % Neutrophils # 5.2 (1.3-7.7) k/uL Lymphocytes # 1.5 (1.0-4.8) k/uL Monocytes # 0.2 (0-1.0) k/uL Eosinophils # 0.3 (0-0.7) k/uL Basophils # 0.1 (0-0.2) k/uL Hypochromasia Slight Poikilocytosis Slight Anisocytosis Slight Microcytosis Slight Sodium 138 (137-145) mmol/L Potassium 5.0 (3.5-5.1) mmol/L Chloride 108 H (98-107) mmol/L Carbon Dioxide 25 (22-30) mmol/L Anion Gap 5 mmol/L BUN 10 (7-17) mg/dL Creatinine 0.63 (0.52-1.04) mg/dL Est GFR (CKD-EPI)AfAm >90 (>60 ml/min/1.73 sqM) Est GFR (CKD-EPI)NonAf >90 (>60 ml/min/1.73 sqM) Glucose 100 H (74-99) mg/dL Calcium 8.4 (8.4-10.2) mg/dL Total Bilirubin 0.3 (0.2-1.3) mg/dL AST 27 (14-36) U/L ALT 28 (9-52) U/L Alkaline Phosphatase 67 (38-126) U/L Total Protein 5.0 L (6.3-8.2) g/dL Albumin 2.8 L (3.5-5.0) g/dL Urine Color Urine Appearance (Clear) Urine pH (5.0-8.0) Ur Specific [place] (1.001-1.035) Urine Protein (Negative) Urine Glucose (UA) (Negative) Urine Ketones (Negative) Urine Blood (Negative) Urine Nitrite (Negative) Urine Bilirubin (Negative) Urine Urobilinogen (<2.0) mg/dL Ur Leukocyte Esterase (Negative) Urine HCG, Qual Not Detected (Not Detectd) 09/25/18 Range/Units 19:53 WBC (3.8-10.6) k/uL RBC (3.80-5.40) m/uL Hgb (11.4-16.0) gm/dL Hct (34.0-46.0) % MCV (80.0-100.0) fL MCH (25.0-35.0) pg MCHC (31.0-37.0) g/dL RDW (11.5-15.5) % Plt Count (150-450) k/uL Neutrophils % % Lymphocytes % % Monocytes % % Eosinophils % % Basophils % % Neutrophils # (1.3-7.7) k/uL Lymphocytes # (1.0-4.8) k/uL Monocytes # (0-1.0) k/uL Eosinophils # (0-0.7) k/uL Basophils # (0-0.2) k/uL Hypochromasia Poikilocytosis Anisocytosis Microcytosis Sodium (137-145) mmol/L Potassium (3.5-5.1) mmol/L Chloride (98-107) mmol/L Carbon Dioxide (22-30) mmol/L Anion Gap mmol/L BUN (7-17) mg/dL Creatinine (0.52-1.04) mg/dL Est GFR (CKD-EPI)AfAm (>60 ml/min/1.73 sqM) Est GFR (CKD-EPI)NonAf (>60 ml/min/1.73 sqM) Glucose (74-99) mg/dL Calcium (8.4-10.2) mg/dL Total Bilirubin (0.2-1.3) mg/dL AST (14-36) U/L ALT (9-52) U/L Alkaline Phosphatase (38-126) U/L Total Protein (6.3-8.2) g/dL Albumin (3.5-5.0) g/dL Urine Color Yellow Urine Appearance Clear (Clear) Urine pH 6.5 (5.0-8.0) Ur Specific [place] 1.012 (1.001-1.035) Urine Protein Negative (Negative) Urine Glucose (UA) Negative (Negative) Urine Ketones Negative (Negative) Urine Blood Negative (Negative) Urine Nitrite Negative (Negative) Urine Bilirubin Negative (Negative) Urine Urobilinogen <2.0 (<2.0) mg/dL Ur Leukocyte Esterase Negative (Negative) Urine HCG, Qual (Not Detectd) Disposition Clinical Impression: Migraine, Headache Disposition: ADMITTED IP TO THIS [facility] Condition: Fair Is patient prescribed a controlled substance at d/c from ED?: No Referrals: None,Stated [Primary Care Provider] - 1-2 days
[2018-09-26 00:45] VITALS: BMI 33.8
[2018-09-26 01:03] LABS: Cholesterol 157 mg/dL (<200); HDL Cholesterol 36 mg/dL (40-60); LDL Cholesterol,Calculated 107 mg/dL (0-99); Triglycerides 72 mg/dL (<150)
[2018-09-26] MEDS ORDERED: PROCHLORPERAZINE 10 MG TAB PO PRN (01:26)
[2018-09-26] MEDS: BUTALB/APAP/CAFF 50-325-40MG TAB PO PRN ×2 (05:56→10:33)
[2018-09-26 06:12] VITALS: RESP 16
[2018-09-26 14:12] VITALS: BP 104/79; PULSE 81; TEMP 98
--- NOTE | 2018-09-26 15:21 | P.HPIM ---
History of Present Illness 28-year-old the female came in with comments of headache which was preceded by expressive aphasia which resolved within 5 minutes. Patient had a CAT scan of the head which did not show any significant abnormality except for left-sided Spenard sinusitis. Patient had a primary. Of confusion started having headache sharp in nature presently mild pressure-like sensation. Patient doesn't have any weakness paresthesias. Patient does have acid reflux symptoms at nighttime with nighttime cough. I discussed with neurology on phone and the patient is being discharged on magnesium oxide in the thiamine will follow-up with neurolog y closely as an outpatient. Patient denied any nausea vomiting. Patient denied any URI like symptoms Review of Systems REVIEW OF SYSTEMS: CONSTITUTIONAL: No fever, no malaise, no fatigue. HEENT: No recent visual problems or hearing problems. Denied any sore throat. CARDIOVASCULAR: No chest pain, orthopnea, PND, no palpitations, no syncope. PULMONARY: No shortness of breath, no cough, no hemoptysis. GASTROINTESTINAL: No diarrhea, no nausea, no vomiting, no abdominal pain. NEUROLOGICAL: no weakness, no numbness. HEMATOLOGICAL: Denies any bleeding or petechiae. GENITOURINARY: Denies any burning micturition, frequency, or urgency. MUSCULOSKELETAL/RHEUMATOLOGICAL: Denies any joint pain, swelling, or any muscle pain. ENDOCRINE: Denies any polyuria or polydipsia. The rest of the 14-point review of systems is negative. Past Medical History Past Medical History: No Reported History Additional Past Medical History / Comment(s): lymphedema in bilateral upper and lower extremities History of Any Multi-Drug Resistant Organisms: None Reported Past Surgical History: Section Past Anesthesia/Blood Transfusion Reactions: No Reported Reaction Past Psychological History: Depression Smoking Status: Current every day smoker Past Alcohol Use History: None Reported Past Drug Use History: None Reported - Past Family History Mother Family Medical History: Cancer, Diabetes Mellitus Additional Family Medical History / Comment(s): Breast cancer, grandfather has diabetes Father Family Medical History: Deep Vein Thrombosis (DVT) Medications and Allergies Home Medications Medication Instructions Recorded Confirmed Type Amoxic-Pot Clav 875-125Mg 1 tab PO Q12HR #10 tablet 09/26/18 Rx [Augmentin 875-125] Butalb/APAP/Caff 50-325-40Mg 1 tab PO Q4H PRN #30 tablet 09/26/18 Rx [Fioricet 50-325-40] Magnesium Oxide [Mag-Ox] 400 mg PO BID #20 tablet 09/26/18 Rx Omeprazole [PriLOSEC] 40 mg PO AC-BRKFST #14 capsule. 09/26/18 Rx Riboflavin 400 mg PO DAILY #10 tablet 09/26/18 Rx Allergies Allergy/AdvReac Type Severity Reaction Status Date / Time No Known Allergies Allergy Verified 09/25/18 21:56 Physical Exam Vitals: Vital Signs Temp Pulse Pulse Pulse Resp BP BP 09/26/18 14:11 98.0 F 81 16 104/79 09/26/18 06:11 97.8 F 76 16 131/72 09/26/18 00:00 18 09/25/18 23:40 97.9 F 71 18 107/66 09/25/18 22:33 98 F 78 18 102/51 09/25/18 19:43 97.9 F 78 18 102/70 09/25/18 18:33 98 F 90 18 115/76 Pulse Ox 09/26/18 14:11 98 09/26/18 06:11 96 09/26/18 00:00 09/25/18 23:40 98 09/25/18 22:33 96 09/25/18 19:43 99 09/25/18 18:33 98 Intake and Output 09/26/18 09/26/18 09/26/18 06:59 14:59 22:59 Intake Total 480 Balance 480 Intake: Oral 480 Other: # Voids 1 3 # Bowel Movements 0 PHYSICAL EXAMINATION: GENERAL: The patient is alert and oriented x3, not in any acute distress. Well developed, well nourished. HEENT: Pupils are round and equally reacting to light. EOMI. No scleral icterus. No conjunctival pallor. Normocephalic, atraumatic. No pharyngeal erythema. No thyromegaly. CARDIOVASCULAR: S1 and S2 present. No murmurs, rubs, or gallops. PULMONARY: Chest is clear to auscultation, no wheezing or crackles. ABDOMEN: Soft, nontender, nondistended, normoactive bowel sounds. No palpable organomegaly. MUSCULOSKELETAL: No joint swelling or deformity. EXTREMITIES: No cyanosis, clubbing, or pedal edema. NEUROLOGICAL: Gross neurological examination did not reveal any focal deficits. SKIN: No rashes. Results CBC & Chem 7: 09/25/18 19:30 09/25/18 19:30 Labs: Abnormal Lab Results - Last 24 Hours (Table) 09/25/18 09/25/18 09/25/18 Range/Units 19:30 19:30 19:30 MCV 73.6 L (80.0-100.0) fL MCH 24.1 L (25.0-35.0) pg RDW 17.0 H (11.5-15.5) % Chloride 108 H (98-107) mmol/L Glucose 100 H (74-99) mg/dL Total Protein 5.0 L (6.3-8.2) g/dL Albumin 2.8 L (3.5-5.0) g/dL LDL Cholesterol, Calc 107 H (0-99) mg/dL HDL Cholesterol 36 L (40-60) mg/dL Thrombosis Risk Factor Assmnt - Choose All That Apply Any of the Below Risk Factors Present?: Yes Each Factor Represents 1 point: Obesity (BMI >25), Swollen legs (current) Other Risk Factors: Yes Each Risk Factor Represents 3 Points: Family history of DVT/PE Thrombosis Risk Factor Assessment Total Risk Factor Score: 5 Thrombosis Risk Factor Assessment Level: High Risk Assessment and Plan Plan: -Headache high possibly of migraine patient does not appear to have CVA or TIA her symptomology is probably from migraine. CT angios the head is negative. Patient will be discharged to follow up with neurology as an outpatient magnesium oxide thiamine prescription was provided along with the Fioricet without codeine. -Cough at nighttime probably secondary to gastroesophageal reflux disease empiric proton pump inhibitor for 14 days -Incidental finding of sphenoid sinusitis most probably not bacterial we'll use empiric antibiotic for 5 days. 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
--- NOTE | 2018-09-26 15:21 | P.DS ---
Providers Date of admission: 09/25/18 22:41 Attending physician: Nayely Dinh Primary care physician: Stated None Hospital Course: As mentioned in HPI Patient Condition at Discharge: Fair Plan - Discharge Summary New Discharge Prescriptions: New Amoxic-Pot Clav 875-125Mg [Augmentin 875-125] 1 tab PO Q12HR #10 tablet Butalb/APAP/Caff 50-325-40Mg [Fioricet 50-325-40] 1 tab PO Q4H PRN #30 tablet PRN Reason: Headache Magnesium Oxide [Mag-Ox] 400 mg PO BID #20 tablet Omeprazole [PriLOSEC] 40 mg PO AC-BRKFST #14 capsule. Riboflavin 400 mg PO DAILY #10 tablet Discharge Medication List Amoxic-Pot Clav 875-125Mg [Augmentin 875-125] 1 tab PO Q12HR #10 tablet 09/26/18 [Rx] Butalb/APAP/Caff 50-325-40Mg [Fioricet 50-325-40] 1 tab PO Q4H PRN #30 tablet 09/26/18 [Rx] Magnesium Oxide [Mag-Ox] 400 mg PO BID #20 tablet 09/26/18 [Rx] Omeprazole [PriLOSEC] 40 mg PO AC-BRKFST #14 capsule. 09/26/18 [Rx] Riboflavin 400 mg PO DAILY #10 tablet 09/26/18 [Rx] Follow up Appointment(s)/Referral(s): Ramana Jo MD [STAFF PHYSICIAN] - 3 Days (please call office to set up appt.) Shreyas Ames MD [Medical Doctor] - 1 Week (office to call with a appt. time and date) Patient Instructions/Handouts: Migraine Headache (GEN) Discharge Disposition: HOME SELF-CARE
== END 2018-09-26 16:26 | disposition home or self-care (01) ==
LOC: EC 18:27 → 4MS4W 22:41
PROVIDERS: ADMIT Internal Medicine; ATTEND Internal Medicine
DX: G43.909 Migraine, unspecified, not intractable, without status migrainosus (principal); K21.9 Gastro-esophageal reflux disease without esophagitis; F32.9 Major depressive disorder, single episode, unspecified; F17.200 Nicotine dependence, unspecified, uncomplicated; Q82.0 Hereditary lymphedema; J32.3 Chronic sphenoidal sinusitis; E66.9 Obesity, unspecified; Z68.33 Body mass index [BMI] 33.0-33.9, adult; Z80.3 Family history of malignant neoplasm of breast; Z83.3 Family history of diabetes mellitus; Z79.899 Other long term (current) drug therapy; Z79.2 Long term (current) use of antibiotics
CPT/HCPCS: 96376; 96361; 96374; 96375; 99285; 36415; 80061; 80053; 85025; 81003; 81025; 71046; 70496; 70450; 70498; G0378 ×2; J2270; J1200; J2765; J2405; Q9967

== ENCOUNTER 2018-09-26 22:55 | Emergency (ER) | payer OTHER ==
[2018-09-26 23:02] VITALS: TEMP 97.8
[2018-09-26] MEDS ORDERED: KETOROLAC 30 MG/ML 1 ML VIAL IVP STA (23:36)
[2018-09-26] MEDS ORDERED: DEXAMETHASONE SOD PHOSPHATE 10 MG/ML 1 ML VIAL IV STA (23:36)
[2018-09-26] MEDS ORDERED: IPRATROPIUM-ALBUTEROL 3 ML NEB INHALATION STA (23:36)
[2018-09-26] MEDS ORDERED: diphenhydrAMINE 50 MG/ML 1 ML VIAL IVP STA (23:36)
[2018-09-26] MEDS ORDERED: SODIUM CHLORIDE 0.9% 2,000 ML IV ONE (23:36)
[2018-09-26] MEDS ORDERED: METOCLOPRAMIDE 5 MG/ML 2 ML VIAL IVP STA (23:36)
--- NOTE | 2018-09-26 23:41 | ED ---
General Adult HPI - General Chief complaint: Neuro Symptoms/Deficit Stated complaint: Revisit Time Seen by Provider: 09/26/18 23:22 Source: patient Mode of arrival: ambulatory Limitations: no limitations - History of Present Illness Initial comments: Patient is a 28-year-old female who presents with a chief complaint of a headache. Patient states that she was seen 2 days ago for similar symptoms however she had acute confusion prior to the onset of her headache and was ultimately admitted for TIA workup. Patient was discharged yesterday after negative computed tomography scan with and without contrast. She was instructed to follow with neurology. Additionally she was started on omeprazole for acid reflux induced coughing at nighttime which she currently complains of today, and also amoxicillin for an incidentally found sinusitis. Patient states that on discharge her symptoms were better however they returned tonight. Patient try to take Fioricet which was prescribed. Discharge but is not able to keep it down as she is nauseous and vomiting. She denies any fever, chills, chest pain or shortness of breath. - Related Data Previous Rx's Medication Instructions Recorded Amoxic-Pot Clav 875-125Mg 1 tab PO Q12HR #10 tablet 09/26/18 [Augmentin 875-125] Butalb/APAP/Caff 50-325-40Mg 1 tab PO Q4H PRN #30 tablet 09/26/18 [Fioricet 50-325-40] Magnesium Oxide [Mag-Ox] 400 mg PO BID #20 tablet 09/26/18 Omeprazole [PriLOSEC] 40 mg PO DEION-BRKFST #14 capsule. 09/26/18 Riboflavin 400 mg PO DAILY #10 tablet 09/26/18 Allergies Allergy/AdvReac Type Severity Reaction Status Date / Time No Known Allergies Allergy Verified 09/26/18 23:47 Review of Systems ROS Statement: Those systems with pertinent positive or pertinent negative responses have been documented in the HPI. ROS Other: All systems not noted in ROS Statement are negative. Constitutional: Denies: fever Respiratory: Reports: cough, wheezes Cardiovascular: Denies: chest pain, dyspnea on exertion Neurological: Reports: headache Past Medical History Past Medical History: No Reported History Additional Past Medical History / Comment(s): lymphedema in bilateral upper and lower extremities History of Any Multi-Drug Resistant Organisms: None Reported Past Surgical History: Section Past Anesthesia/Blood Transfusion Reactions: No Reported Reaction Past Psychological History: Depression Smoking Status: Current every day smoker Past Alcohol Use History: None Reported Past Drug Use History: None Reported - Past Family History Mother Family Medical History: Cancer, Diabetes Mellitus Additional Family Medical History / Comment(s): Breast cancer, grandfather has diabetes Father Family Medical History: Deep Vein Thrombosis (DVT) General Exam Limitations: no limitations General appearance: alert, in no apparent distress Head exam: Present: atraumatic, normocephalic Eye exam: Present: normal appearance, PERRL, EOMI. Absent: scleral icterus ENT exam: Present: normal exam Neck exam: Present: normal inspection Respiratory exam: Present: normal lung sounds bilaterally. Absent: respiratory distress, wheezes Cardiovascular Exam: Present: regular rate, normal rhythm GI/Abdominal exam: Present: soft. Absent: distended, tenderness Rectal exam: Present: deferred Extremities exam: Present: normal inspection Back exam: Present: normal inspection Neurological exam: Present: alert, oriented X3, CN II-XII intact Psychiatric exam: Present: normal affect, normal mood Skin exam: Present: warm, dry, intact Course Vital Signs 09/26/18 09/27/18 09/27/18 22:59 01:10 01:15 Temperature 97.8 F Pulse Rate 91 91 96 Respiratory 18 Rate Blood Pressure 118/78 O2 Sat by Pulse 98 Oximetry Procedures - Phlebotomy Reason for Blood Draw by MD: RN/lab unable Obtained Bloods via: peripheral vein stick Estimated cc's Blood Obtained: 0 Additional Comments: US guided IV. Medical Decision Making - Medical Decision Making Patient presents with a chief complaint of a headache, nausea and vomiting, and a cough. On initial evaluation, vital signs are stable, patient is in no acute distress. Headache pattern is consistent with migraine. Patient states she has had headaches before in similar distributions however not as severe. Patient was diagnosed with migraine headaches on her last discharge and instructed to follow-up with neurology. At this time, patient will be treated with a headache cocktail. Patient can continue omeprazole, furosemide, and amoxicillin. 1:24 AM On re-evaluation, patient states that her headache is better, photophobia has improved, patient is ambulatory in the hallway without assistance. Patient stable for discharge at this time, she was instructed to follow up with PCP and Neurology in 1-2 days, return to the ED if sx worsen or change. - Lab Data Result diagrams: 09/27/18 00:30 09/27/18 00:30 Lab Results 09/27/18 09/27/18 Range/Units 00:30 00:30 WBC 8.5 (3.8-10.6) k/uL RBC 5.25 (3.80-5.40) m/uL Hgb 12.7 (11.4-16.0) gm/dL Hct 38.8 (34.0-46.0) % MCV 73.9 L (80.0-100.0) fL MCH 24.1 L (25.0-35.0) pg MCHC 32.6 (31.0-37.0) g/dL RDW 17.1 H (11.5-15.5) % Plt Count 263 (150-450) k/uL Neutrophils % 75 % Lymphocytes % 18 % Monocytes % 3 % Eosinophils % 3 % Basophils % 1 % Neutrophils # 6.4 (1.3-7.7) k/uL Lymphocytes # 1.5 (1.0-4.8) k/uL Monocytes # 0.2 (0-1.0) k/uL Eosinophils # 0.3 (0-0.7) k/uL Basophils # 0.0 (0-0.2) k/uL Hypochromasia Slight Poikilocytosis Slight Anisocytosis Slight Microcytosis Slight Sodium 137 (137-145) mmol/L Potassium 4.3 (3.5-5.1) mmol/L Chloride 107 (98-107) mmol/L Carbon Dioxide 25 (22-30) mmol/L Anion Gap 5 mmol/L BUN 8 (7-17) mg/dL Creatinine 0.64 (0.52-1.04) mg/dL Est GFR (CKD-EPI)AfAm >90 (>60 ml/min/1.73 sqM) Est GFR (CKD-EPI)NonAf >90 (>60 ml/min/1.73 sqM) Glucose 96 (74-99) mg/dL Calcium 8.3 L (8.4-10.2) mg/dL Disposition Clinical Impression: Headache Disposition: HOME SELF-CARE Condition: Good Is patient prescribed a controlled substance at d/c from ED?: No Referrals: Christie Herrera MD [STAFF PHYSICIAN] - 1-2 days
[2018-09-27 00:49] LABS: Anisocytosis Slight; Basophils % (A) 1 %; Eosinophils # (A) 0.3 k/uL (0-0.7); Eosinophils % (A) 3 %; HCT 38.8 % (34.0-46.0); HGB 12.7 gm/dL (11.4-16.0); Hypochromasia Slight; Lymphocytes # (A) 1.5 k/uL (1.0-4.8); Lymphocytes % (A) 18 %; MCH 24.1 pg (25.0-35.0); MCHC 32.6 g/dL (31.0-37.0); MCV 73.9 fL (80.0-100.0); Mean Platelet Volume 7.2; Microcytosis Slight; Monocytes # (A) 0.2 k/uL (0-1.0); Monocytes % (A) 3 %; Neutrophils # (A) 6.4 k/uL (1.3-7.7); Neutrophils % (A) 75 %; Platelet Count 263 k/uL (150-450); Poikilocytosis Slight; RBC 5.25 m/uL (3.80-5.40); RDW 17.1 % (11.5-15.5); WBC 8.5 k/uL (3.8-10.6)
[2018-09-27 00:58] LABS: African American GFR (CKD) >90 (>60 ml/min/1.73 sqM); Anion Gap 5 mmol/L; Blood Urea Nitrogen 8 mg/dL (7-17); Calcium 8.3 mg/dL (8.4-10.2); Carbon Dioxide 25 mmol/L (22-30); Chloride 107 mmol/L (98-107); Glucose 96 mg/dL (74-99); Potassium 4.3 mmol/L (3.5-5.1); Sodium 137 mmol/L (137-145)
[2018-09-27 01:55] VITALS: BP 110/66; PULSE 94; RESP 16
== END 2018-09-27 02:13 | disposition home or self-care (01) ==
LOC: EC 22:55
DX: R51 Headache (principal); R41.0 Disorientation, unspecified; R11.2 Nausea with vomiting, unspecified; R05 Cough; F17.200 Nicotine dependence, unspecified, uncomplicated
CPT/HCPCS: 36415; 80048; 85025; 94640; 96361; 96374; 96375; 99283

== ENCOUNTER 2023-07-04 11:09 | Emergency (ER) | payer BC, OTHER ==
[2023-07-04 11:23] VITALS: TEMP 98
--- NOTE | 2023-07-04 11:49 | ED ---
Back Pain HPI - General Chief Complaint: Back Pain/Injury Stated Complaint: back pain Time Seen by Provider: 07/04/23 11:15 Source: patient Limitations: no limitations - History of Present Illness Initial Comments: 32-year-old female who presents emergency department with right-sided back pain. States that the pain is worse with movement and palpation of the area. She denies any injuries. States that she has had an upper respiratory infection which has made her cough significantly. She is concerned that she may have injured herself because of coughing. Patient denies any shortness of breath. No fevers. Cough is improving however back pain remains. She has not taken anything for the pain. Denies any low back pain. No saddle anesthesia or bowel or bladder incontinence. No concern for . No anterior abdominal pain. No other alleviating, precipitating modifying factors - Related Data Previous Rx's Medication Instructions Recorded Amoxic-Pot Clav 875-125Mg 1 tab PO Q12HR #10 tablet 09/26/18 [Augmentin 875-125] Butalb/APAP/Caff 50-325-40Mg 1 tab PO Q4H PRN #30 tablet 09/26/18 [Fioricet 50-325-40] Magnesium Oxide [Mag-Ox] 400 mg PO BID #20 tablet 09/26/18 Omeprazole [PriLOSEC] 40 mg PO AC-BRKFST #14 capsule. 09/26/18 Riboflavin (Vitamin B2) 400 mg PO DAILY #10 tablet 09/26/18 [Riboflavin] Albuterol Inhaler [Ventolin Hfa 2 puff INHALATION QID #8 gm 07/04/23 Inhaler] Lidocaine 5% Patch [Lidoderm] 1 patch TOPICAL DAILY #25 patch 07/04/23 methocarbamoL [Robaxin-750] 750 mg PO QID PRN #30 tab 07/04/23 predniSONE [Deltasone] 20 mg PO BID #10 tab 07/04/23 Allergies Allergy/AdvReac Type Severity Reaction Status Date / Time No Known Allergies Allergy Verified 07/04/23 11:14 Review of Systems ROS Statement: Those systems with pertinent positive or pertinent negative responses have been documented in the HPI. ROS Other: All systems not noted in ROS Statement are negative. Past Medical History Past Medical History: No Reported History Additional Past Medical History / Comment(s): lymphedema in bilateral upper and lower extremities History of Any Multi-Drug Resistant Organisms: None Reported Past Surgical History: Section Past Anesthesia/Blood Transfusion Reactions: No Reported Reaction Past Psychological History: Depression Smoking Status: Former smoker, Vaper Past Alcohol Use History: None Reported Past Drug Use History: None Reported - Past Family History Mother Family Medical History: Cancer, Diabetes Mellitus Additional Family Medical History / Comment(s): Breast cancer, grandfather has diabetes Father Family Medical History: Deep Vein Thrombosis (DVT) General Exam Limitations: no limitations General appearance: alert, in no apparent distress Head exam: Present: atraumatic, normocephalic, normal inspection Eye exam: Present: normal appearance, PERRL, EOMI. Absent: scleral icterus, conjunctival injection, periorbital swelling ENT exam: Present: normal exam, mucous membranes moist Neck exam: Present: normal inspection. Absent: tenderness, meningismus, lymphadenopathy Respiratory exam: Present: normal lung sounds bilaterally. Absent: respiratory distress, wheezes, rales, rhonchi, stridor Cardiovascular Exam: Present: regular rate, normal rhythm, normal heart sounds. Absent: systolic murmur, diastolic murmur, rubs, gallop, clicks GI/Abdominal exam: Present: soft, normal bowel sounds. Absent: distended, tenderness, guarding, rebound, rigid Extremities exam: Present: normal inspection, full ROM, normal capillary refill. Absent: tenderness, pedal edema, joint swelling, calf tenderness Back exam: Present: CVA tenderness (R) Neurological exam: Present: alert, oriented X3, CN II-XII intact Psychiatric exam: Present: normal affect, normal mood Skin exam: Present: warm, dry, intact, normal color. Absent: rash Course Vital Signs 07/04/23 07/04/23 11:12 14:15 Temperature 98 F Pulse Rate 105 H 87 Respiratory 20 16 Rate Blood Pressure 163/86 134/72 O2 Sat by Pulse 97 100 Oximetry Medical Decision Making - Medical Decision Making Was pt. sent in by a medical professional or institution (, PA, CERTIFIED PHLEBOTOMIST, urgent care, hospital, or snf...) When possible be specific @ -No Did you speak to anyone other than the patient for history (EMS, parent, family, police, friend...)? What history was obtained from this source @ -No Did you review nursing and triage notes (agree or disagree)? Why? @ -I reviewed and agree with nursing and triage notes Were old charts reviewed (outside hosp., previous admission, EMS record, old EKG, old radiological studies, urgent care reports/EKG's, snf records)? Report findings @ -No old charts were reviewed Differential Diagnosis (chest pain, altered mental status, abdominal pain women, abdominal pain men, vaginal bleeding, weakness, fever, dyspnea, syncope, headache, dizziness, GI bleed, back pain, seizure, CVA, palpatations, mental health, musculoskeletal)? @ -Differential Dyspnea: Coronary syndrome, arrhythmia, tamponade, asthma, COPD, pulmonary embolism, pneumonia, pneumothorax, pulmonary effusion, anaphylaxis, diabetic ketoacidosis, flailed chest, pulmonary contusion, diaphragmatic rupture, anemia, neuromuscul ar, this is not meant to be an all-inclusive list. EKG interpreted by me (3pts min.). @ -Not done X-rays interpreted by me (1pt min.). @ -Yes and demonstrates viral bronchitis CT interpreted by me (1pt min.). @ -None done U/S interpreted by me (1pt. min.). @ -None done What testing was considered but not performed or refused? (CT, X-rays, U/S, labs)? Why? @ -None What meds were considered but not given or refused? Why? @ -None Did you discuss the management of the patient with other professionals (professionals i.e. , PA, CERTIFIED PHLEBOTOMIST, lab, RT, psych nurse, oncology social worker, line assigner, teacher, chief strategy officer, registered nurse hh case manager)? Give summary @ -No Was smoking cessation discussed for >3mins.? @ -No Was critical care preformed (if so, how long)? @ -No Were there social determinants of health that impacted care today? How? (Homelessness, low income, unemployed, alcoholism, drug addiction, transportation, low edu. Level, literacy, decrease access to med. care, assisted, rehab)? @ -No Was there de-escalation of care discussed even if they declined (Discuss DNR or withdrawal of care, Hospice)? DNR status @ -No What co-morbidities impacted this encounter? (DM, HTN, Smoking, COPD, CAD, Cancer, CVA, ARF, Chemo, Hep., AIDS, mental health diagnosis, sleep apnea, morbid obesity)? @ -None Was patient admitted / discharged? Hospital course, mention meds given and route, prescriptions, significant lab abnormalities, going to OR and other pertinent info. @ -Upon arrival patient was seen and evaluated in the hallway. Thorough history and physical exam was performed. Patient does provide a urine sample. Lidoderm patches applied to the area. She was given a muscle relaxer, Toradol shot and a loading dose of steroids. Patient will be discharged home on steroids, inhaler, muscle relaxers and Lidoderm patches. Instructed to use them as directed. Follow-up with her doctor and return for any new or worsening symptoms. Patient was agreeable plan she is discharged in stable condition Undiagnosed new problem with uncertain prognosis? @ -No Drug Therapy requiring intensive monitoring for toxicity (Heparin, Nitro, Insulin, Cardizem)? @ -No Were any procedures done? @ -No Diagnosis/symptom? @ -Acute right flank pain, acute cough, acute bronchitis Acute, or Chronic, or Acute on Chronic? @ -Acute Uncomplicated (without systemic symptoms) or Complicated (systemic symptoms)? @ -Complicated Side effects of treatment? @ -No Exacerbation, Progression, or Severe Exacerbation? @ -No Poses a threat to life or bodily function? How? (Chest pain, [place], [place], pneumonia, PE, COPD, DKA, ARF, appy, cholecystitis, CVA, Diverticulitis, Homicidal, Suicidal, threat to staff... and all critical care pts) @ -No - Lab Data Lab Results 07/04/23 07/04/23 Range/Units 12:00 12:00 Urine Color Colorless Urine Appearance Clear (Clear) Urine pH 5.5 (5.0-8.0) Ur Specific [place] 1.019 (1.001-1.035) Urine Protein Negative (Negative) Urine Glucose (UA) Negative (Negative) Urine Ketones Negative (Negative) Urine Blood Negative (Negative) Urine Nitrite Negative (Negative) Urine Bilirubin Negative (Negative) Urine Urobilinogen <2.0 (<2.0) mg/dL Ur Leukocyte Esterase Negative (Negative) Urine HCG, Qual Not Detected (Not Detectd) Disposition Clinical Impression: Right flank pain, Bronchitis, Cough Disposition: HOME SELF-CARE Condition: Stable Instructions (If sedation given, give patient instructions): Flank Pain (ED) Additional Instructions: Start taking the steroids tomorrow. Please take your additional medications as directed. If the lidocaine patches are expensive, asked them for the [id number] alternatives. Do not take any NSAIDs while you are on the prednisone. Follow-up with your doctor and return for any new or worsening symptoms Prescriptions: predniSONE [Deltasone] 20 mg PO BID #10 tab Lidocaine 5% Patch [Lidoderm] 1 patch TOPICAL DAILY #25 patch methocarbamoL [Robaxin-750] 750 mg PO QID PRN #30 tab PRN Reason: Muscle Spasm Albuterol Inhaler [Ventolin Hfa Inhaler] 2 puff INHALATION QID #8 gm Is patient prescribed a controlled substance at d/c from ED?: No Referrals: Greg Keyes DO [Primary Care Provider] - 1-2 days Time of Disposition: 13:52
[2023-07-04] MEDS: CYCLOBENZAPRINE 10 MG TAB PO STA (12:03)
[2023-07-04] MEDS: LIDOCAINE 4% PATCH TOPICAL ONE (12:03)
[2023-07-04] MEDS: KETOROLAC 15 MG/ML 1 ML VIAL IVP STA (12:36)
[2023-07-04] MEDS: KETOROLAC 15 MG/ML 1 ML VIAL IM STA (12:37)
[2023-07-04 12:47] LABS: Appearance,Urine Clear (Clear); Bilirubin,Urine Negative (Negative); Blood,Urine Negative (Negative); Color,Urine Colorless; Glucose,Urine (UA) Negative (Negative); Ketones,Urine Negative (Negative); Leukocyte Esterase,Urine Negative (Negative); Nitrite,Urine Negative (Negative); PH, Urine 5.5 (5.0-8.0); Protein,Urine Negative (Negative); Specific Gravity,Urine 1.019 (1.001-1.035); Urobilinogen,Urine <2.0 mg/dL (<2.0)
--- NOTE | 2023-07-04 13:03 | XR ---
EXAMINATION TYPE: XR ribs RT w PA chest xray, 5 views DATE OF EXAM: 07/04/2023 COMPARISON: 09/25/2018 HISTORY: 32-year-old female with side pain and coughing FINDINGS: Mild peribronchial cuffing and mild interstitial prominence. Heart normal size. Aorta and pulmonary v asculature within normal limits. No consolidation or pleural effusion. Right RIBS show no displaced fractures. IMPRESSION: No displaced rib fractures seen. Peribronchial cuffing suggests bronchitis or asthma. No focal infilt rate seen.
[2023-07-04] MEDS: predniSONE 20 MG TAB PO STA (14:09)
[2023-07-04 14:27] VITALS: BP 134/72; PULSE 87; RESP 16
== END 2023-07-04 14:16 | disposition home or self-care (01) ==
LOC: EC 11:09
DX: J40 Bronchitis, not specified as acute or chronic (principal); R10.9 Unspecified abdominal pain; F17.290 Nicotine dependence, other tobacco product, uncomplicated
CPT/HCPCS: 81003; 81025; 71101; 99284; 96372; J1885; J7512